=== PATIENT | female | born 1995 | race Caucasian/White ===

== ENCOUNTER 2017-10-13 22:26 | Emergency (ER) | payer MEDICAID ==
[~2017-10-13] VITALS: Ht 180.3 cm; Wt 99.8 kg
[2017-10-13] MEDS ORDERED: KETOROLAC TROMETH 30 MG/ML 1ML VIAL IV ONE (23:45)
[2017-10-13] MEDS ORDERED: fentaNYL CITRATE 100 MCG/2 ML VL IV ONE (23:45)
[2017-10-14] MEDS ORDERED: IOHEXOL 300 MG/ML 100ML BOTTLE IJ ONE (02:05)
[2017-10-14 03:02] VITALS: BP 129/76
== END 2017-10-14 05:19 | disposition home or self-care (01) ==
LOC: ER 22:38
DX: S80.02XA Contusion of left knee, initial encounter (principal); S49.81XA Other specified injuries of right shoulder and upper arm, initial encounter; V43.52XA Car driver injured in collision with other type car in traffic accident, initial encounter; Y93.89 Activity, other specified; Y92.89 Other specified places as the place of occurrence of the external cause; Y99.8 Other external cause status
CPT/HCPCS: 70450; 71260; 73030; 73552; 74177; 96374; 96375; 99284; J1885; J3010; Q9967